=== PATIENT | male | born 1985 | race Caucasian/White ===

== ENCOUNTER 2023-12-07 07:01 | Emergency (ER) | payer BC ==
[~2023-12-07] VITALS: Ht 185.4 cm; Wt 99.6 kg
[2023-12-07] MEDS ORDERED: SODIUM CHLORIDE 0.9% 1,000 ML IV ONE ×2 (07:15→09:15)
[2023-12-07] MEDS ORDERED: ondansetron HCL 4 MG/2 ML VIAL IV ONE (07:15)
[2023-12-07] MEDS ORDERED: PROCHLORPERAZINE EDISYLATE 10 MG/2 ML VIAL IV ONE (07:15)
[2023-12-07] MEDS ORDERED: LOPERAMIDE HCL 2 MG CAP PO ONE (07:15)
[2023-12-07 07:35] LABS: BASOPHILS 0.1 % (0-2); EOSINOPHILS 0.5 % (0-6); HEMATOCRIT 46.8 % (35.0-50.0); HEMOGLOBIN 16.3 g/dL (12.0-18.0); LYMPHOCYTES 2.3 % (24-44); MCH 33.4 (27-36); MCHC 34.9 g/dl (30-36); MCV 95.7 fl (81-99); MONOCYTES 4.6 % (0-12); NEUTROPHILS 92.5 % (39-80); PLATELET COUNT 228 K/uL (140-440); RBC 4.89 M/ul (4.3-5.7); RDW 12.5 (10.5-15.0)
[2023-12-07 07:54] LABS: ALBUMIN 4.7 g/dL (3.4-5.0); ALBUMIN/GLOBULIN RATIO 1.27 (1.1-2.4); ANION GAP 18.3 (7-21); BUN/CREATININE RATIO 14.78 (6.0-28.6); CALCIUM 9.2 mg/dL (8.5-10.1); CREATININE, SERUM 1.15 mg/dL (0.70-1.30); POTASSIUM 4.3 mmol/L (3.5-5.1); PROTEIN, TOTAL 8.4 g/dL (6.4-8.2)
[2023-12-07] MEDS ORDERED: ONDANSETRON ODT8 MG PO (11:38)
[2023-12-07 11:52] VITALS: BP 133/78
== END 2023-12-07 11:54 | disposition home or self-care (01) ==
LOC: ED 07:01
PROVIDERS: Emergency Medicine
DX: K52.9 Noninfective gastroenteritis and colitis, unspecified (principal)
CPT/HCPCS: 36415; 80053; 85025; 96361; 96374; 96375; 99284-25; J0780; J2405; J7030